=== PATIENT | male | born 1985 | race African-American/Black ===

== ENCOUNTER → 2020-09-24 | Outpatient (REF) | payer OTHER ==
--- NOTE | 2020-09-25 16:32 | ECHO ---
ECHOCARDIOGRAM DATE OF PROCEDURE: 09/24/2020 Age: 35 Gender: Male Height: 73 inches Weight: 194 pounds Body surface area: 2.12 m2 PATIENT LOCATION: Outpatient. REFERRING PHYSICIAN: Lambert Menezes M.D. INDICATION: Palpitations. Obstructive sleep apnea. MEASUREMENTS: 2D Measurements: RV 4.2 cm withLV 5.2 cm Septum 1.1 cm Posterior wall 1.0 cm Aortic Root 3.6 cm Ascending aorta 4.0 cm LA 3.9 cm LVEF 65% Doppler Measurements: AV 1.0 m/s LVOT 0.97 m/s LVOT diameter 2.0 cm MV-E 96, A 50, E/A ratio 1.9 Early mitral deceleration time 183 msec E prime medial 10, A prime medial 7, E prime lateral 12.3 Average E/E prime ratio 8.6/PCWP 12.6 mmHg PV 0.94 m/s Pulmonary artery acceleration time 130 msec RVSP 23 mmHg IVC 1.2 cm COMMENTS: Sinus bradycardia without intraventricular conduction disturbance. M-mode and two-dimensional echocardiography was performed with pulse, continuous wave, color flow, and tissue Doppler studies. Normal left ventricular size, wall thickness, and wall motion. Left atrial size upper limits of normal with currently normal Doppler assessment of LV diastolic function and estimated mean left atrial pressure. Borderline enlarged right heart chambers with normal wall motion and estimated pulmonary arterial pressure. Normal IVC size and collapse against an elevated central venous pressure. Normal aortic root diameter, but mildly dilated ascending aorta. Normal appearing aortic valvular apparatus without left ventricular outflow tract obstruction, but mild aortic insufficiency. Normal appearing mitral valve apparatus and leaflet excursion with no posterior systolic buckling, but mild mitral insufficiency. Normal appearing tricuspid valve with very mild insufficiency. No apparent intracardiac mass or pericardial effusion. MTDD
== END ==
LOC: EDSTATUS 08:30 → M CARPUL 08:50
PROVIDERS: ATTEND Internal Medicine
DX: R00.2 Palpitations (principal)